=== PATIENT | female | born 1930 | race Caucasian/White ===

== ENCOUNTER → 2016-07-24 | Outpatient (CLI) | payer OTHER ==
--- NOTE | 2016-07-26 08:29 | DX ---
Bone Densitometry Indication: Screen for osteoporosis. Technique: DEXA scan was performed on [employer] Discovery W Bone Densitometer. Comparison Study: July 19, 2002. Results: Lumbar Spine (L1-L4) BMD: 1.229 T-score: 1.7 Prior BMD: 1.178 Percent change: 4.4% Total Hip (Right) BMD: 0.925 T-score: -0.1 Femoral Neck (Right) BMD: 0.729 T-score: -1.1 Total Hip (Left) BMD: 0.981 T-score: 0.3 Prior BMD: 1.024 Percent change: -4.2% Femoral Neck (Left) BMD: 0.757 T-score: -0.8 Conclusion: Osteopenia. In comparison to the previous study from 2002, there has been an increase in the patient's measured B MD of the lumbar spine. This is likely due to degenerative changes. There has been a decrease in the measured BMD of the total left hip. Additional Comments: 1. By FRAX calculation, the estimated 10-year risk of any major osteoporotic fracture is 12%. The es timated 10-year risk of hip fracture is 2.7%. 2. Consider repeating this study in 2 years or as clinically indicated. NOTE: The risk of osteoporotic fracture increases approximately two-fold for each 1.0 SD decrease in T-score. The T-score represents the standard deviations from a young normal, same sex, reference po pulation. Low bone density is not the only risk factor for fracture. Clinical factors to consider include fall risk, previous osteoporotic fracture, family history of fractures, smoking, and low body weight. Patients who have an unexpectedly low BMD may need to be evaluated for secondary causes of low bone m ineral density. In comparing the present study to a prior study, lack of a significant increase or decrease in BMD ma y signify efficacy of the patient's present treatment. Bone mineral density measurements performed with densitometers produced by different manufacturers ar e not comparable. For the most reproducible BMD measurement, subsequent exams should be performed on the same densitometer.
== END ==
LOC: BMCIMAGING 11:09
PROVIDERS: ATTEND Family Medicine
DX: Z13.820 Encounter for screening for osteoporosis (principal); M85.80 Other specified disorders of bone density and structure, unspecified site

== ENCOUNTER 2016-08-28 11:21 | Inpatient (IN) | payer OTHER ==
[2016-08-28] MEDS ORDERED: NS 1,000 ML IV ONE ×2 (11:44→13:03)
--- NOTE | 2016-08-28 11:45 | EDPHY ---
H & P Stated Complaint: hx flu like symptoms/fell r/t weakness/bruise to r hand Source: Patient, Other () Exam Limitations: No limitations - Personal History Current Tetanus/Diphtheria Vaccine: Yes - Medical/Surgical History Hx Asthma: No Hx Chronic Respiratory Disease: No Hx Diabetes: No Hx Cardiac Disease: No Hx Renal Disease: No Hx Cirrhosis: No Hx Alcoholism: No Hx HIV/AIDS: No Hx Splenectomy or Spleen Trauma: No Other PMH: htn/hypothyroid, cholecystectomy - Family History Significant Family History: No pertinent family hx - Social History Smoking Status: Never smoked Alcohol Use: Rarely Drug Use: None Time Seen by Provider: 08/28/16 12:13 HPI/ROS: HPI: 85-year-old female presents to emergency department with chief concern weakness. Symptoms onset 48 hours ago associated with nasal congestion, wet sounding productive cough. Has fallen several times since then. Has required a cane or walker over the past 48 hours. She is normally independent with ambulation. Did not strike her head. Has no dizziness, headache, neck or back pain. Denies fever, chills, shortness of breath, chest pain, abdominal pain, nausea, vomiting, diarrhea, urinary symptoms, back or flank pain. Denies weakness, numbness, or tingling of her extremities. Up-to-date with flu shot and pneumonia vaccine. Lives independently with her . ROS:10 point review of systems is negative other than as stated in HPI (Maureen Ruelas) - Social History Additional Social History: Lives independently with her (Maureen Ruelas) - Physical Exam Exam: Vital signs stable, reviewed by me General: Awake, alert, calm, cooperative. No acute distress. Head: Normalocephalic. Atraumatic. EENT: PERRLA. EOMI. No pallor or injection. Anicteric. No nystagmus. No injection. TMs intact bilaterally with normal landmarks. Nasal congestion present with mildly erythematous turbinates bilaterally. Oropharynx without redness, exudates, or lesions. Tonsils 2+ bilaterally, no exudates. Neck: Supple, nontender. No lymphadenopathy. Full range of motion. No meningismus. Respiratory: Breathing unlabored. Breath sounds diminished upper lobes, fine rales left lower lobe. CV: Chest nontender, atraumatic. Heart rate regular. No murmur, distal pulses 2+ bilaterally. Brisk cap refill all extremities. GI: Abdomen soft, nontender. Bowel sounds normoactive and positive x4 quadrants. : No suprapubic tenderness. No CVA or flank tenderness. Neuro: Alert. Oriented x 3. Speech clear. Nonfocal cranial nerves throughout. Sensation intact all extremities. Strength 5+ all extremities. Facial symmetry present. Negative pronator drift. Skin: Skin warm, dry, intact. No rashes, abrasions, or lacerations. Skin turgor normal. Extremities: Moves all extremities. (Maureen Ruelas) Constitutional: Initial Vital Signs Temperature (C) 37.2 C 08/28/16 11:27 Heart Rate 62 08/28/16 11:27 Respiratory Rate 18 08/28/16 11:27 Blood Pressure 172/68 H 08/28/16 11:27 O2 Sat (%) 92 08/28/16 11:27 O2 Delivery Mode Room Air Allergies/Adverse Reactions: No Known Allergies Allergy (Unverified 08/28/16 11:26) Home Medications: Medication Instructions Recorded Atenolol [Tenormin 50 mg (*)] 50 mg PO DAILY 08/28/16 Estradiol [Estradiol 1 MG (*)] 1 mg PO DAILY 08/28/16 Levothyroxine [Synthroid 50 mcg 50 mcg PO DAILY06 08/28/16 (*)] Liothyronine Sodium [Cytomel 5 mcg 5 mcg PO DAILY 08/28/16 (*)] Medical Decision Making - Diagnostics Imaging: PA and lateral chest. Clinical History: weakness, rales, uri sx Comparison Study: None available. Findings: Interstitial thickening and bronchial wall thickening is present through the central left lung in the right lower lobe suspicious for multifocal interstitial pneumonitis.. Heart size is normal. No pleural effusion.. Impression: Central left and right lower lobe bronchitis and interstitial pneumonitis.. Dictated By: Juan Antonio Huerta MD (Maureen Ruelas) ED Course/Re-evaluation: 85-year-old female presents to emergency department with weakness. Developed URI symptoms 2 days ago, grew very weak, has fallen several times since then. Has not struck her head. Has no headache, dizziness, neck or back pain. No facial asymmetry. Negative pronator drift. Rales left lower lobe. Chest x-ray pending. Labs pending. Awaiting urinalysis. EKG shows sinus rhythm, rate 64, normal intervals, no evidence of acute ischemia. 1315: Chest x-ray consistent with bronchitis and pneumonitis. Given patient 500 mg p.o. azithromycin. White count 8640 with 82.5% neutrophils. Lactic acid 1.5. BUN 21, creatinine 0.9. CPK is 903. BNP 96063. 2nd L normal saline hung. Patient will be admitted to hospitalist Dr. Randall Barlow. Report given to Wyatt Hutchison NP. 1440: transferred to floor. Stable. (Maureen Ruelas) Differential Diagnosis: Differential diagnosis includes but is not limited to pneumonia, influenza, UTI , metabolic derangement, stroke, TIA, acute coronary syndrome (Maureen Ruelas) - Data Points Laboratory Results: Laboratory Results 08/28/16 11:50 08/28/16 11:50 08/28/16 08/28/16 08/28/16 12:55 11:50 11:50 WBC RBC Hgb Hct MCV MCH MCHC RDW Plt Count MPV Neut % (Auto) Lymph % (Auto) [place] % (Auto) Eos % (Auto) Baso % (Auto) Nucleat RBC Rel Count Absolute Neuts (auto) Absolute Lymphs (auto) Absolute Monos (auto) Absolute Eos (auto) Absolute Basos (auto) Absolute Nucleated RBC Immature Gran % Immature Gran # VBG Lactic Acid 1.5 mmol/L mmol/L (0.7-2.1) Sodium Potassium Chloride Carbon Dioxide Anion Gap BUN Creatinine Estimated GFR Glucose Calcium Magnesium Creatine Kinase 903 IU/L H IU/L (0-156) CK-MB (CK-2) Fraction 4.43 ng/mL H ng/mL (0-3.19) CK-MB (CK-2) % 0.5 % % (0.0-4.0) Creatine Kinase Interp NEGATIVE (NEGATIVE) NT-Pro-B Natriuret Pep 24004 pg/mL H pg/mL (0-450) Influenza Typ A,B (DFA) 08/28/16 08/28/16 08/28/16 11:50 11:50 11:50 WBC 8.64 10^3/uL 10^3/uL (3.80-9.50) RBC 4.57 10^6/uL 10^6/uL (4.18-5.33) Hgb 14.8 g/dL g/dL (12.6-16.3) Hct 42.2 % % (38.0-47.0) MCV 92.3 fL fL (81.5-99.8) MCH 32.4 pg pg (27.9-34.1) MCHC 35.1 g/dL g/dL (32.4-36.7) RDW 12.6 % % (11.5-15.2) Plt Count 114 10^3/uL L 10^3/uL (150-400) MPV 11.6 fL fL (8.7-11.7) Neut % (Auto) 82.5 % H % (39.3-74.2) Lymph % (Auto) 7.1 % L % (15.0-45.0) [place] % (Auto) 9.6 % % (4.5-13.0) Eos % (Auto) 0.0 % L % (0.6-7.6) Baso % (Auto) 0.3 % % (0.3-1.7) Nucleat RBC Rel Count 0.0 % % (0.0-0.2) Absolute Neuts (auto) 7.13 10^3/uL H 10^3/uL (1.70-6.50) Absolute Lymphs (auto) 0.61 10^3/uL L 10^3/uL (1.00-3.00) Absolute Monos (auto) 0.83 10^3/uL H 10^3/uL (0.30-0.80) Absolute Eos (auto) 0.00 10^3/uL L 10^3/uL (0.03-0.40) Absolute Basos (auto) 0.03 10^3/uL 10^3/uL (0.02-0.10) Absolute Nucleated RBC 0.00 10^3/uL 10^3/uL (0-0.01) Immature Gran % 0.5 % % (0.0-1.1) Immature Gran # 0.04 10^3/uL 10^3/uL (0.00-0.10) VBG Lactic Acid Sodium 139 mEq/L mEq/L (134-144) Potassium 3.5 mEq/L mEq/L (3.5-5.2) Chloride 103 mEq/L mEq/L (97-110) Carbon Dioxide 26 mEq/l mEq/l (22-31) Anion Gap 10 mEq/L mEq/L (8-16) BUN 21 mg/dL mg/dL (7-23) Creatinine 0.9 mg/dL mg/dL (0.6-1.0) Estimated GFR 60 Glucose 92 mg/dL mg/dL (70-100) Calcium 8.4 mg/dL L mg/dL (8.5-10.4) Magnesium 1.9 mg/dL mg/dL (1.6-2.3) Creatine Kinase CK-MB (CK-2) Fraction CK-MB (CK-2) % Creatine Kinase Interp NT-Pro-B Natriuret Pep Influenza Typ A,B (DFA) NEGATIVE FOR FLU (NEGATIVE) Medications Given: Discontinued Medications Azithromycin (Zithromax) 500 mg PO EDNOW ONE PRN Reason: Protocol Stop: 08/28/16 13:15 Last Admin: 08/28/16 13:33 Dose: 500 mg Sodium Chloride (Ns) 1,000 mls @ 0 mls/hr IV ONCE ONE PRN Reason: Wide Open Stop: 08/28/16 11:45 Last Admin: 08/28/16 11:58 Dose: 1,000 mls Sodium Chloride (Ns) 1,000 mls @ 0 mls/hr IV ONCE ONE PRN Reason: Wide Open Stop: 08/28/16 13:04 Last Admin: 08/28/16 13:22 Dose: 1,000 mls Departure - Departure Disposition: [facility] Inpatient Acute Clinical Impression: Weakness, Elevated brain natriuretic peptide (BNP) level, Bronchitis Rhabdomyolysis Qualifiers: Rhabdomyolysis type: traumatic Encounter type: initial encounter Qualified Code (s): T79.6XXA - Traumatic ischemia of muscle, initial encounter Condition: Good
[2016-08-28 12:03] LABS: % IMMATURE GRANULYOCYTES 0.5 % (0.0-1.1); ABSOLUTE IMMATURE GRANULOCYTES 0.04 10^3/uL (0.00-0.10); ADD DIFF? NO; ADD MORPH? NO; ADD SCAN? NO; ATYPICAL LYMPHOCYTE FLAG 30 (0-99); FRAGMENT RBC FLAG 0 (0-99); HEMATOCRIT 42.2 % (38.0-47.0); HEMOGLOBIN 14.8 g/dL (12.6-16.3); LEFT SHIFT FLG 0 (0-99); LIPEMIA HEMOLYSIS FLAG 90 (0-99); MEAN CELL HEMOGLOBIN 32.4 pg (27.9-34.1); MEAN CELL HEMOGLOBIN CONCENTR. 35.1 g/dL (32.4-36.7); MEAN CELL VOLUME 92.3 fL (81.5-99.8); MEAN PLATELET VOLUME 11.6 fL (8.7-11.7); PLATELET CLUMPS FLAG 0 (0-99); PLATELET COUNT 114 10^3/uL (150-400); RED BLOOD CELL COUNT 4.57 10^6/uL (4.18-5.33); RED CELL DISTRIBUTION WIDTH 12.6 % (11.5-15.2)
--- NOTE | 2016-08-28 12:15 | CPEKG ---
Heart Rate: 64 RR Interval: 938 P-R Interval: 152 QRSD Interval: 104 QT Interval: 436 QTC Interval: 450 P Lancing: 52 QRS Lancing: -46 T Wave Lancing: 61 EKG Severity - ABNORMAL ECG - EKG Impression: SINUS RHYTHM EKG Impression: LAD, CONSIDER LEFT ANTERIOR FASCICULAR BLOCK Electronically Signed By: Sourav Mcgrath 28-Aug-2016 12:19:12
[2016-08-28 12:39] LABS: ANION GAP 10 mEq/L (8-16); CALCIUM 8.4 mg/dL (8.5-10.4); CARBON DIOXIDE 26 mEq/l (22-31); CHLORIDE 103 mEq/L (97-110); CREATININE 0.9 mg/dL (0.6-1.0); GLOMERULAR FILTRATION RATE 60; GLUCOSE 92 mg/dL (70-100); MAGNESIUM 1.9 mg/dL (1.6-2.3); POTASSIUM 3.5 mEq/L (3.5-5.2); SODIUM 139 mEq/L (134-144)
[2016-08-28] MEDS ORDERED: AZITHROMYCIN 250 MG TAB PO ONE (13:14)
[2016-08-28 13:31] LABS: CK-MB INTERPRETATION NEGATIVE (NEGATIVE)
[2016-08-28 13:42] LABS: CREATINE KINASE-MB FRACTION 4.43 ng/mL (0-3.19)
[2016-08-28] MEDS ORDERED: ALBUTEROL 3 ML DEYVIAL IH PRN (15:21)
[2016-08-28] MEDS ORDERED: ONDANSETRON 4 MG/2 ML VIAL IVP PRN (15:21)
[2016-08-28] MEDS ORDERED: PROMETHAZINE HCL 25 MG/ML INJ IVP PRN (15:21)
[2016-08-28] MEDS ORDERED: ONDANSETRON DISINTEGRATING 4 MG TAB PO PRN (15:21)
[2016-08-28] MEDS ORDERED: oxyCODONE IR 5 MG TAB PO PRN (15:21)
[2016-08-28 16:12] LABS: COLOR YELLOW; LEUKOCYTE ESTERASE,URINE NEGATIVE (NEGATIVE); NITRITE,URINE NEGATIVE (NEGATIVE)
[2016-08-28 16:21] LABS: BACTERIA TRACE /hpf (NONE SEEN); MUCUS TRACE /lpf (NONE-1+)
--- NOTE | 2016-08-28 16:34 | PDGENHP ---
History and Physical - Chief Complaint weakness,sob,fever - History of Present Illness 85 yo F with PMH of htn presenting with several days of fatigue and malaise in the setting of sob and cough as well as fever. She is a bit of a poor historian but notes that for the past 2 days she has had difficulty getting up and walking and even getting out of bed. She has been coughing but it has not been a productive cough. She denies any swelling in her legs, she does not think she has had shortness of breath while lying flat particularly. She has not been around anyone sick. She has fallen down a few times in the last couple of days because she has felt so weak. She has no chronic medical problems other than htn and hypothyroid. History Information - Allergies/Home Medication List Allergies/Adverse Reactions: No Known Allergies Allergy (Unverified 08/28/16 11:26) Home Medications: Atenolol [Tenormin 50 mg (*)] 50 mg PO DAILY 08/28/16 [Last Taken 08/28/16] Estradiol [Estradiol 1 MG (*)] 1 mg PO DAILY 08/28/16 [Last Taken 08/28/16] Levothyroxine [Synthroid 50 mcg (*)] 50 mcg PO DAILY06 08/28/16 [Last Taken ] Liothyronine Sodium [Cytomel 5 mcg (*)] 5 mcg PO DAILY 08/28/16 [Last Taken ] I have personally reviewed and updated: family history, medical history, social history, surgical history - Past Medical History hypertension Additional medical history: hypothyroid - Surgical History Reports: cholecystectomy, hysterectomy - Family History Positive for: non-pertinent - Social History Smoking Status: Never smoked Alcohol Use: Rarely Drug Use: None Additional social history: , 2 children, lives independently Review of Systems ROS: 10pt was reviewed & negative except for what was stated in HPI & below Physical Exam Temp Pulse Resp BP Pulse Ox 38.8 C H 84 18 162/74 H 95 08/28/16 14:50 08/28/16 14:50 08/28/16 14:50 08/28/16 14:50 08/28/16 14:50 Constitutional: no apparent distress, appears nourished Eyes: PERRL Ears, Nose, Mouth, Throat: moist mucous membranes, hearing normal Cardiovascular: regular rate and rhythym, no murmur, rub, or gallop Respiratory: no respiratory distress, reduced air movement, expiratory wheeze Gastrointestinal: normoactive bowel sounds, soft, non-tender abdomen Skin: warm, normal color Musculoskeletal: no muscle tenderness, generalized weakness, No asymmetric calves Neurologic: AAOx3, sensation intact bilaterally Psychiatric: interacting appropriately, not anxious, not encephalopathic Lab Data & Imaging Review 08/28/16 11:50 08/28/16 11:50 WBC 8.64 10^3/uL (3.80-9.50) 08/28/16 11:50 RBC 4.57 10^6/uL (4.18-5.33) 08/28/16 11:50 Hgb 14.8 g/dL (12.6-16.3) 08/28/16 11:50 Hct 42.2 % (38.0-47.0) 08/28/16 11:50 MCV 92.3 fL (81.5-99.8) 08/28/16 11:50 MCH 32.4 pg (27.9-34.1) 08/28/16 11:50 MCHC 35.1 g/dL (32.4-36.7) 08/28/16 11:50 RDW 12.6 % (11.5-15.2) 08/28/16 11:50 Plt Count 114 10^3/uL (150-400) L 08/28/16 11:50 MPV 11.6 fL (8.7-11.7) 08/28/16 11:50 Neut % (Auto) 82.5 % (39.3-74.2) H 08/28/16 11:50 Lymph % (Auto) 7.1 % (15.0-45.0) L 08/28/16 11:50 [place] % (Auto) 9.6 % (4.5-13.0) 08/28/16 11:50 Eos % (Auto) 0.0 % (0.6-7.6) L 08/28/16 11:50 Baso % (Auto) 0.3 % (0.3-1.7) 08/28/16 11:50 Nucleat RBC Rel Count 0.0 % (0.0-0.2) 08/28/16 11:50 Absolute Neuts (auto) 7.13 10^3/uL (1.70-6.50) H 08/28/16 11:50 Absolute Lymphs (auto) 0.61 10^3/uL (1.00-3.00) L 08/28/16 11:50 Absolute Monos (auto) 0.83 10^3/uL (0.30-0.80) H 08/28/16 11:50 Absolute Eos (auto) 0.00 10^3/uL (0.03-0.40) L 08/28/16 11:50 Absolute Basos (auto) 0.03 10^3/uL (0.02-0.10) 08/28/16 11:50 Absolute Nucleated RBC 0.00 10^3/uL (0-0.01) 08/28/16 11:50 Immature Gran % 0.5 % (0.0-1.1) 08/28/16 11:50 Immature Gran # 0.04 10^3/uL (0.00-0.10) 08/28/16 11:50 VBG Lactic Acid 1.5 mmol/L (0.7-2.1) 08/28/16 12:55 Sodium 139 mEq/L (134-144) 08/28/16 11:50 Potassium 3.5 mEq/L (3.5-5.2) 08/28/16 11:50 Chloride 103 mEq/L (97-110) 08/28/16 11:50 Carbon Dioxide 26 mEq/l (22-31) 08/28/16 11:50 Anion Gap 10 mEq/L (8-16) 08/28/16 11:50 BUN 21 mg/dL (7-23) 08/28/16 11:50 Creatinine 0.9 mg/dL (0.6-1.0) 08/28/16 11:50 Estimated GFR 60 08/28/16 11:50 Glucose 92 mg/dL (70-100) 08/28/16 11:50 Calcium 8.4 mg/dL (8.5-10.4) L 08/28/16 11:50 Magnesium 1.9 mg/dL (1.6-2.3) 08/28/16 11:50 Creatine Kinase 903 IU/L (0-156) H 08/28/16 11:50 CK-MB (CK-2) Fraction 4.43 ng/mL (0-3.19) H 08/28/16 11:50 CK-MB (CK-2) % 0.5 % (0.0-4.0) 08/28/16 11:50 Creatine Kinase Interp NEGATIVE (NEGATIVE) 08/28/16 11:50 NT-Pro-B Natriuret Pep 13359 pg/mL (0-450) H 08/28/16 11:50 Urine Color YELLOW 08/28/16 15:47 Urine Appearance CLEAR 08/28/16 15:47 Urine pH 6.0 (5.0-7.5) 08/28/16 15:47 Ur Specific [place] 1.020 (1.002-1.030) 08/28/16 15:47 Urine Protein 2+ (NEGATIVE) H 08/28/16 15:47 Urine Ketones 1+ (NEGATIVE) H 08/28/16 15:47 Urine Blood 2+ (NEGATIVE) H 08/28/16 15:47 Urine Nitrate NEGATIVE (NEGATIVE) 08/28/16 15:47 Urine Bilirubin NEGATIVE (NEGATIVE) 08/28/16 15:47 Urine Urobilinogen NEGATIVE EU (0.2-1.0) 08/28/16 15:47 Ur Leukocyte Esterase NEGATIVE (NEGATIVE) 08/28/16 15:47 Urine RBC 1-3 /hpf (0-3) 08/28/16 15:47 Urine WBC 1-3 /hpf (0-3) 08/28/16 15:47 Ur Epithelial Cells TRACE /lpf (NONE-1+) 08/28/16 15:47 Urine Bacteria TRACE /hpf (NONE SEEN) H 08/28/16 15:47 Urine Mucus TRACE /lpf (NONE-1+) 08/28/16 15:47 Ur Culture Indicated? NOT INDICATED (NI) 08/28/16 15:47 Urine Glucose NEGATIVE (NEGATIVE) 08/28/16 15:47 Influenza Typ A,B (DFA) NEGATIVE FOR FLU (NEGATIVE) 08/28/16 11:50 Visualized and Interpreted Chest x-ray results: Yes Chest X-Ray results: other (central left and lll bronchitis) Visualized and Interpreted EKG results: Yes EKG Interpretation: Positive for: normal sinsus rhythm Assessment & Plan Assessment: 85 yo F with pmh of htn, hypothyroid presenting with sob/fever/generalized weakness in setting of bronchitis/bronchpneumonia # bronchitis/bronchopneumonia: CXR consistent largely with bronchitis or broncho pneumonia rather than pneumonia. started on ctx/azith for now but can likely transition to oral levofloxacin in am. # fever: without sepsis at this point--wbc wnl and no other sirs criteria. Will continue to monitor, tylenol prn. # generalized weakness: patient unable to walk at this point in the setting of above, no focal weakness but has had recurrent falls at home. Will ask pt/ot to evaluate. # elevated bnp: does not appear to have decompensated chf on exam however bnp significantly elevated to 10,000. no prior baseline. Given significant weakness et, will get echocardiogram to further evaluate and monitor on tele with serial trops/ecgs # htn: continue atenolol # dispo: IP status, patient not safe for dc to home given inability to ambulate safely at this time and recurrent falls Patient new to my care. Old records reviewed and summarized as above. Care plan reviewed with ER doctor.
--- NOTE | 2016-08-28 16:43 | ECHO ---
[id number] + + [address] : : [place] [address] : : [phone] + + Adult Echocardiographic Report + ----+ :Name: DYLLAN MARY Maria Teresa Date: 08/28/2016 03:39 PM : : Hospital Admission Number: [id number] Location: 203: :: 1930 Gender: Female Height: 62 in : :Age: 85 yrs Race: WH Weight: 126 lb : :Reason For Study: Fatigue/DRIVER/Elevated BNP : : BSA: 1.6 meters2 : + ----+ MMode/2D Measurements \T\ Calculations IVSd: 0.59 cm LVIDd: 3.5 cm FS: 35.7 % Ao root diam: LVPWd: 0.78 cm LVIDs: 2.3 cm EDV(Teich): 3.1 cm 51.7 ml LA dimension: ESV(Teich): 3.5 cm 17.5 ml EF(Teich): 66.2 % LVLd ap4: 7.2 cm SV(MOD-sp4): EDV(MOD-sp4): 38.0 ml 52.0 ml LVLs ap4: 5.4 cm ESV(MOD-sp4): 14.0 ml EF(MOD-sp4): 73.1 % Normal Measurement Values: + + :LVIDd (3.5-5.7cm) IVSd (0.6-1.1cm) LVPWd (0.6-1.1cm) Aortic Root (2.0-3.7cm)Left Atrium (1.5-4.0cm): :LV Vol(d) (76-115ml) LV Vol(s) (29-48ml) Ejec Fraction (50-65%)PV Rafa (0.6- 1.2m/s) TV Rafa (0.4-1.0m/s) : :MV E Rafa (0.8-1.0m/s)MV A Rafa (0.3-1.0m/s)LVOT Rafa (0.7-1.2m/s) Asc Ao Rafa ( 0.9-1.8m/s) : + + Doppler Measurements \T\ Calculations MV E max rafa: 139.2 cm/sec Ao mean P.8 mmHg TR max rafa: 414.6 cm/sec MV A max rafa: 95.3 cm/sec Ao V2 mean: 104.0 cm/secTR max P.8 mmHg MV E/A: 1.5 Ao V2 VTI: 31.1 cm RAP systole: 10.0 mmHg RVSP(TR): 78.8 mmHg Left Ventricle The left ventricle is normal in size. There is mild concentric left ventricular hypertrophy. Left ventricular systolic function is normal. Ejection Fraction = 70-75%. There is Doppler evidence for diastolic dysfunction. No regional wall motion abnormalities noted. Right Ventricle The right ventricle is normal in size and function. Atria The left atrium is mildly dilated. The right atrium is mildly dilated. The interatrial septum is intact with no evidence for an atrial septal defect. Mitral Valve The mitral valve is normal in structure and function. There is no evidence of mitral valve prolapse. There is no mitral valve stenosis. There is mild mitral regurgitation. Tricuspid Valve Normal tricuspid valve. There is severe tricuspid regurgitation. There is Doppler evidence for severe pulmonary hypertension. Right ventricular systolic pressure is 80-85mmHg. Aortic Valve The aortic valve opens well. There is no aortic stenosis. There is no aortic insufficiency. Pulmonic Valve The pulmonic valve is not well visualized. There is no pulmonic valvular regurgitation. Great Vessels The aortic root is normal size. Pericardium/Pleural There is no pericardial effusion. Conclusion A complete two-dimensional transthoracic echocardiogram was performed (2D, M-mode, Doppler and color flow Doppler). Left ventricular systolic function is normal. There is mild concentric left ventricular hypertrophy. Ejection Fraction = 70-75%. There is Doppler evidence for diastolic dysfunction. The left atrium is mildly dilated. The right atrium is mildly dilated. There is mild mitral regurgitation. There is severe tricuspid regurgitation. There is Doppler evidence for severe pulmonary hypertension. Right ventricular systolic pressure is 80-85mmHg. Final Reading Physician: Shadi Seymour signed on 08/28/2016 04:42 PM Ordering Physician: Randall Barlow Performed By: Raina Rachel RD
[2016-08-28] MEDS: IPRATROPIUM/ALBUTEROL 3 ML DEYVIAL IH SCH ×2 (17:13→21:05)
[2016-08-28 17:40] LABS: TROPONIN I 0.092 ng/mL (0-0.034)
[2016-08-28] MEDS: ACETAMINOPHEN 325 MG TAB PO PRN (18:25)
[2016-08-29 04:54] LABS: % IMMATURE GRANULYOCYTES 0.4 % (0.0-1.1); ABSOLUTE IMMATURE GRANULOCYTES 0.03 10^3/uL (0.00-0.10); ADD DIFF? NO; ADD MORPH? NO; ADD SCAN? NO; ATYPICAL LYMPHOCYTE FLAG 30 (0-99); FRAGMENT RBC FLAG 0 (0-99); HEMATOCRIT 37.5 % (38.0-47.0); LEFT SHIFT FLG 0 (0-99); LIPEMIA HEMOLYSIS FLAG 90 (0-99); MEAN CELL HEMOGLOBIN 32.2 pg (27.9-34.1); MEAN CELL HEMOGLOBIN CONCENTR. 34.7 g/dL (32.4-36.7); MEAN CELL VOLUME 92.8 fL (81.5-99.8); MEAN PLATELET VOLUME 11.5 fL (8.7-11.7); PLATELET CLUMPS FLAG 0 (0-99); PLATELET COUNT 96 10^3/uL (150-400); RED BLOOD CELL COUNT 4.04 10^6/uL (4.18-5.33); RED CELL DISTRIBUTION WIDTH 12.5 % (11.5-15.2)
[2016-08-29 05:06] LABS: ANION GAP 6 mEq/L (8-16); CALCIUM 7.7 mg/dL (8.5-10.4); CARBON DIOXIDE 26 mEq/l (22-31); CHLORIDE 109 mEq/L (97-110); CREATININE 0.7 mg/dL (0.6-1.0); GLOMERULAR FILTRATION RATE > 60; GLUCOSE 92 mg/dL (70-100); POTASSIUM 3.2 mEq/L (3.5-5.2); SODIUM 141 mEq/L (134-144)
[2016-08-29] MEDS: IPRATROPIUM/ALBUTEROL 3 ML DEYVIAL IH SCH ×4 (05:51→20:40)
[2016-08-29] MEDS: LEVOTHYROXINE 50 MCG TAB PO SCH (05:59)
[2016-08-29] MEDS: LIOTHYRONINE SODIUM 5 MCG TAB PO SCH (08:35)
[2016-08-29] MEDS: ESTRADIOL 1 MG TAB PO SCH (08:35)
[2016-08-29] MEDS: AZITHROMYCIN IV 500 MG in D5W 250 ML IV SCH (08:35)
[2016-08-29] MEDS: ENOXAPARIN 40 MG/0.4 ML SYR SC SCH (08:36)
[2016-08-29] MEDS: ATENOLOL 50 MG TAB PO SCH (08:36)
[2016-08-29] MEDS: ACETAMINOPHEN 325 MG TAB PO PRN (08:36)
--- NOTE | 2016-08-29 08:41 | CPEKG ---
Heart Rate: 67 RR Interval: 896 P-R Interval: 148 QRSD Interval: 102 QT Interval: 404 QTC Interval: 427 P Carney: 63 QRS Carney: -53 T Wave Carney: 34 EKG Severity - ABNORMAL ECG - EKG Impression: SINUS RHYTHM EKG Impression: LEFT ANTERIOR FASCICULAR BLOCK EKG Impression: PROBABLE LEFT VENTRICULAR HYPERTROPHY Electronically Signed By: Neo Roberto 29-Aug-2016 09:02:46
--- NOTE | 2016-08-29 10:25 | HOSPPROG ---
Hospitalist Progress Note Assessment/Plan: DIAGNOSIS: # acute hypoxemic respiratory failure # suspect respiratory infection with cough and fever # Unexplained severe pulmonary hypertension, uncertain chronicity but suspect chronic; could not at this time rule out PE # skeletal muscle injury with CPK greater than 900; uncertain if this is acute pressure injury or a more chronic illness such as of myositis; if an inflammatory illness were present this could potentially be an explanation for her severe pulmonary hypertension # no history of tobacco exposure PLANS: -continue antibiotics at this time -IV hydration -CT scan chest to rule out PE and to reassess possible pulmonary infection -bedside spirometry -repeat CPK and follow that to resolution; if it is not promptly improving may need to consider muscle biopsy or take other measures to diagnosis her muscle injury SUBJECTIVE: The patient feels no better today, mostly weak and tired Still with cough and fever symptoms Less short of breath with oxygen on Denies chest or leg pain OBJECTIVE Vitals reviewed: Hypertension and fever present gambling monitor: Sinus rhythm on my review Exam: alert oriented but clear memory deficit Looks very tired but in no distress skin warm dry color ok resps not labored lungs diminished but clear BSs heart regular abd soft nondistended nontender, bowel sounds present limbs warm, no edema, no cord or tenderness iv site ok Laboratory data: CPK yesterday was greater than 900 with negative MB indicating skeletal muscle injury, uncertain cause Potassium a bit low today I reviewed her chest x-ray images, agree there is noted definite focal infiltrate although she could have some diffuse infiltrate Objective: Vital Signs Temp Pulse Resp BP Pulse Ox 37.6 C 76 18 180/81 H 96 08/29/16 07:38 08/29/16 07:38 08/29/16 07:38 08/29/16 07:38 08/29/16 07:38 Laboratory Results 08/29/16 03:43 08/29/16 03:43 08/28/16 08/29/16 08/30/16 06:59 06:59 06:59 Intake Total 2300 Output Total 1000 100 Balance 1300 -100 ICD10 Worksheet Patient Problems: Problems Problem Status Onset Bronchitis Acute Elevated brain natriuretic peptide (BNP) level Acute Rhabdomyolysis Acute Weakness Acute
[2016-08-29] MEDS ORDERED: IOPAMIDOL (ISOVUE 370) 100 ML BTL IV ONE (13:07)
[2016-08-30] MEDS: IPRATROPIUM/ALBUTEROL 3 ML DEYVIAL IH SCH ×2 (05:11→11:25)
[2016-08-30] MEDS: LEVOTHYROXINE 50 MCG TAB PO SCH (06:12)
[2016-08-30] MEDS: AZITHROMYCIN IV 500 MG in D5W 250 ML IV SCH (09:13)
[2016-08-30] MEDS: LIOTHYRONINE SODIUM 5 MCG TAB PO SCH (09:14)
[2016-08-30] MEDS: ATENOLOL 50 MG TAB PO SCH (09:14)
[2016-08-30] MEDS: ESTRADIOL 1 MG TAB PO SCH (09:14)
[2016-08-30] MEDS: ENOXAPARIN 40 MG/0.4 ML SYR SC SCH (09:14)
--- NOTE | 2016-08-30 12:18 | HOSPPROG ---
Hospitalist Progress Note Assessment/Plan: DIAGNOSIS: # acute hypoxemic respiratory failure # Community-acquired pneumonia # Unexplained severe pulmonary hypertension, 80-85 per echo, uncertain chronicity but suspect chronic; - no PE on CT scan # skeletal muscle injury with CPK greater than 900 -suspect rhabdomyolysis but there is no known injury and she not was not on the floor as we know; -uncertain if this is acute injury or a more chronic illness such as myositis ; if an inflammatory illness were present this could potentially be an explanation for her severe pulmonary hypertension # Indeterminate troponins; suspect these are due to myocardial strain from her pulmonary hypertension and acute respiratory failure; there is no chest pain or CHF # no history of tobacco exposure # mild gait instability Overall she is improving reasonably well but is fairly debilitated. Given her pulmonary hypertension severity, with no acute findings such as PE or otherwise , is surprising she does not have evidence of right-sided heart failure. 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: Sinus rhythm on my review Exam: alert oriented but clear memory deficit Looks very tired but in no distress skin warm dry color ok resps not labored lungs diminished but clear BSs heart regular abd soft nondistended nontender, bowel sounds present limbs warm, no edema, no cord or tenderness iv site ok Laboratory data: CPK lower but remains at 650 Potassium a bit low today Chest CT, my review of images: no PE or other explanation of Pulm HTN, there is mild pneumonia Objective: Vital Signs Temp Pulse Resp BP Pulse Ox 37.0 C 67 16 140/68 H 93 08/30/16 08:00 08/30/16 11:25 08/30/16 11:25 08/30/16 08:00 08/30/16 11:25 Laboratory Results 08/29/16 03:43 08/29/16 03:43 08/29/16 08/30/16 08/31/16 06:59 06:59 06:59 Intake Total 2300 950 Output Total 1000 1001 Balance 1300 -51 ICD10 Worksheet Patient Problems: Problems Problem Status Onset Bronchitis Acute Elevated brain natriuretic peptide (BNP) level Acute Rhabdomyolysis Acute Weakness Acute
[2016-08-30 14:34] LABS: CK-MB INTERPRETATION NEGATIVE (NEGATIVE); CREATINE KINASE-MB FRACTION 3.25 ng/mL (0-3.19)
[2016-08-30] MEDS ORDERED: LOPERAMIDE HCL 2 MG CAP PO PRN (17:08)
[2016-08-31 04:31] LABS: HEMATOCRIT 37.7 % (38.0-47.0)
[2016-08-31 05:25] LABS: CK-MB INTERPRETATION NEGATIVE (NEGATIVE)
[2016-08-31] MEDS: LEVOTHYROXINE 50 MCG TAB PO SCH (05:29)
[2016-08-31] MEDS: ESTRADIOL 1 MG TAB PO SCH (09:42)
[2016-08-31] MEDS: ATENOLOL 50 MG TAB PO SCH (09:43)
[2016-08-31] MEDS: LIOTHYRONINE SODIUM 5 MCG TAB PO SCH (09:43)
[2016-08-31] MEDS: ENOXAPARIN 40 MG/0.4 ML SYR SC SCH (09:45)
[2016-08-31] MEDS: AZITHROMYCIN IV 500 MG in D5W 250 ML IV SCH (10:34)
--- NOTE | 2016-08-31 13:00 | HOSPPROG ---
Hospitalist Progress Note Assessment/Plan: CAP - Improving, no culture data. Cont Ceftriaxone, Azithromycin. No O2 requirement. Likely change to po atbx and possibly dc in am. Diarrhea - Pt has h/o IBS, but will r/o C diff given recent atbx use and family now bringing diarrhea to my attention. Severe pulmonary hypertension - CTPA neg for PE. discussed recommendation for outpt sleep study and possible outpt Pulmonary consult. Mild rhabdo - CPK decreasing with IVF's. Blurred vision / memory loss - Reportedly occurred day of admission. Check brain MRI to r/o CVA. Deconditioning - PT/OT recommending home care vs SNF rehab. Continue to evaluate. Dispo - likely ready for dc tomorrow. Home health planned. Subjective: Pt feels well. Denies CP or SOB. Cough is improved. She is afebrile. Family reports ongoing frequent diarrhea. They also report that pt had blurred / double vision with memory loss on day of admission. No ongoing neurodeficits. Objective: Vital Signs Temp Pulse Resp BP Pulse Ox 36.5 C 67 17 120/59 L 91 L 08/31/16 11:45 08/31/16 11:45 08/31/16 11:45 08/31/16 11:45 08/31/16 11:45 Laboratory Results 08/31/16 04:00 08/30/16 08/31/16 09/01/16 05:59 05:59 05:59 Intake Total 950 500 Output Total 1001 950 Balance -51 -450 - Physical Exam Constitutional: no apparent distress Eyes: PERRL Ears, Nose, Mouth, Throat: moist mucous membranes Cardiovascular: regular rate and rhythym Respiratory: no respiratory distress Gastrointestinal: normoactive bowel sounds, soft, non-tender abdomen Skin: warm Neurologic: AAOx3, other (some mild left pronator drift noted) Psychiatric: interacting appropriately ICD10 Worksheet Patient Problems: Problems Problem Status Onset Bronchitis Acute Elevated brain natriuretic peptide (BNP) level Acute Rhabdomyolysis Acute Weakness Acute
[2016-08-31 13:52] LABS: POTASSIUM 3.2 mEq/L (3.5-5.2)
[2016-08-31] MEDS ORDERED: POTASSIUM CL 20 MEQ TAB PO ONE (15:40)
[2016-09-01 05:37] LABS: ANION GAP 6 mEq/L (8-16); CALCIUM 8.6 mg/dL (8.5-10.4); CARBON DIOXIDE 26 mEq/l (22-31); CHLORIDE 109 mEq/L (97-110); CREATININE 0.7 mg/dL (0.6-1.0); GLOMERULAR FILTRATION RATE > 60; GLUCOSE 92 mg/dL (70-100); POTASSIUM 3.9 mEq/L (3.5-5.2); SODIUM 141 mEq/L (134-144)
[2016-09-01] MEDS: LEVOTHYROXINE 50 MCG TAB PO SCH (06:45)
[2016-09-01 07:42] VITALS: BP 164/73; PULSE 93; RESP 14; TEMP 97.5; O2SAT 95
[2016-09-01] MEDS ORDERED: ATENOLOL 50 MG TAB PO SCH ×2 (08:21)
[2016-09-01] MEDS: LIOTHYRONINE SODIUM 5 MCG TAB PO SCH (09:34)
[2016-09-01] MEDS: ESTRADIOL 1 MG TAB PO SCH (09:34)
[2016-09-01] MEDS: ENOXAPARIN 40 MG/0.4 ML SYR SC SCH (09:38)
[2016-09-01] MEDS: AZITHROMYCIN IV 500 MG in D5W 250 ML IV SCH (10:31)
--- NOTE | 2016-09-01 10:43 | PDIAF ---
- Diagnosis Diagnosis: PNA, pulmonary hypertension Code Status: Full Code - Medication Management Discharge Medications: Medications to Continue on Transfer Atenolol [Tenormin 50 mg (*)] 50 mg PO DAILY 08/28/16 [Last Taken 08/28/16] Levothyroxine [Synthroid 50 mcg (*)] 50 mcg PO DAILY06 08/28/16 [Last Taken ] Liothyronine Sodium [Cytomel 5 mcg (*)] 5 mcg PO DAILY 08/28/16 [Last Taken ] Cefuroxime Axetil [Ceftin (*)] 500 mg PO BID #8 tab 09/01/16 [Last Taken Unknown ] Estradiol [Estradiol 1 MG (*)] 0.5 mg PO DAILY #30 tab 09/01/16 [Last Taken Unknown] Discharge Medications: Refer to the Discharge Home Medication list for PRN reason. - Orders Services needed: Home Care, Registered Nurse, Physical Therapy, Occupational Therapy Home Care Face to Face: I certify that this patient was under my care and that I had the required [id number] encounter meeting the encounter requirements on the discharge day. My findings support the fact that the patient is homebound as defined in CMS Chapter 7 Medicare Benefits Manual 30.1.1, The condition of the patient is such that there exists a normal inability to leave home and consequently, leaving home would require a considerable and taxing effort. Diet Recommendation: no restrictions on diet - Follow Up Care Current Providers and Referrals: Evelyn Yuen MD [Primary Care Provider] - As per Instructions Roland Johnson MD [Medical Doctor] -
--- NOTE | 2016-09-01 17:08 | GDS ---
[f rep st] DISCHARGE SUMMARY DISCHARGE DIAGNOSES: 1. Community-acquired pneumonia. 2. Diarrhea in the setting of irritable bowel syndrome, improved. 3. Severe pulmonary hypertension. 4. Rhabdomyolysis, improved. 5. Deconditioning. CONSULTANTS: None. IMAGING STUDIES/PROCEDURES: 1. Chest x-ray, August 28, 2016, showed central left and right lower lobe interstitial thickening and bronchial wall thickening, possibly consistent with a pneumonitis. 2. Echocardiogram, August 28, 2016, showed mild LVH with an ejection fraction of 70% to 75% and Doppler evidence for diastolic dysfunction. The left and right atrium were mildly dilated. There was mild mitral regurgitation , severe tricuspid regurgitation, and evidence of severe pulmonary hypertension with right ventricular systolic pressure of [address] pulmonary angiogram is negative for pulmonary embolism. A patchy left upper lobe alveolar opacity was noted, as well as small bilateral pleural effusions. 4. Brain MRI, August 31, 2016, was negative for acute ischemia. There was pronounced atrophy and extensive small vessel disease, as well as pansinusitis noted. HISTORY: For details, please see dictated history and physical dated August 28, 2016. In brief, the patient is an 85-year-old female with a history of hypertension and hypothyroidism, who presented to the emergency department with fatigue, shortness of breath, cough, and fever. She was admitted to the hospital for further management. HOSPITAL COURSE: Patient was admitted to the telemetry unit and was started on ceftriaxone and azithromycin. She did not meet criteria for sepsis. Her fever resolved with antibiotic therapy. She did have an elevated BNP of 10,000 on arrival without clinical findings consistent with acute heart failure. An echocardiogram was therefore obtained and revealed severe pulmonary hypertension as described above. This led to CT pulmonary angiogram to rule out chronic PE as a contributory factor to her elevated right ventricular pressures. This was negative for pulmonary embolism, though again was suggestive of left upper lobe pneumonia. Several days into her hospital course , the family reported that she initially had some visual changes with acute memory loss. Brain MRI was performed and was negative for acute CVA. She was able to wean off oxygen, maintaining her saturations on room air, though she did desaturate at night and was discharged on nocturnal oxygen. It is recommended she have an outpatient sleep study to evaluate for sleep apnea as a potential etiology of her pulmonary hypertension. She is also referred to Dr. Shorty Johnson, contamination consultant, to follow up in the outpatient setting for other potential etiologies and treatment options for her pulmonary hypertension. She was afebrile for more than 72 hours at the time of discharge. She should have followup chest imaging in 6-8 weeks to ensure resolution of the left upper lobe opacity seen on her CT scan.In addition, her MRI did note pansinusitis and her antibiotic therapy should be adequate for treatment. She did complete 1.5 g of azithromycin prior to discharge. DISPOSITION: Patient is discharged home in stable condition with home healthcare services including RN, PT, OT. FOLLOWUP: 1. Dr. Evelyn Yuen, primary care physician. 2. Dr. Roland Johnson, contamination consultant. DISCHARGE MEDICATIONS: Please see [facility] for complete updated outpatient medication list. New medications on discharge include cefuroxime 500 mg p.o. b.i.d. for 2 more days to complete a total of a week of therapy for pneumonia. Her estradiol dose is changed from 1 mg to 0.5 mg in an attempt to reduce systemic estrogen in this 85-year-old patient due to the increased cardiovascular risk. She can follow up with her primary care physician regarding further dosing of this. She was also discharged home on home oxygen to use 2 L/minute at night. /[id number]/MODL and [id number]/MODL [facility]
== END 2016-09-01 12:47 | disposition home health service (06) | DRG 193 ==
LOC: F2W 14:36
PROVIDERS: ADMIT Internal Medicine; ATTEND Hospitalist
DX: J18.0 Bronchopneumonia, unspecified organism (principal); J96.21 Acute and chronic respiratory failure with hypoxia; R19.7 Diarrhea, unspecified; H53.8 Other visual disturbances; I27.2 Other secondary pulmonary hypertension; M62.82 Rhabdomyolysis; E03.9 Hypothyroidism, unspecified
CPT/HCPCS: 97116-GP; 97162-GP; 97165-GO; 97530-GO; 97530-GP; 97535-GO; G8978-GP-CK; G8979-GP-CI; G8980-GP-CI; G8987-GO-CI; G8987-GO-CJ; G8988-GO-CI; G8989-GO-CI; J0456; J0696; J1650; Q9967

== ENCOUNTER → 2016-10-17 | Outpatient (CLI) | payer OTHER | LOC: BMCIMAGING 09:35 | PROVIDERS: ATTEND Family Medicine | DX: Z09 Encounter for follow-up examination after completed treatment for conditions other than malignant neoplasm (principal) ==